=== PATIENT | male | born 1955 | race Caucasian/White ===

== ENCOUNTER 2017-01-17 22:03 | Observation (INO) | payer BC ==
[2017-01-17 22:21] LABS: Hematocrit 33 % (42-52); Hemoglobin 10.5 g/dl (14.0-18.0); Mean Corpuscular HGB Conc 32 g/dl (31-36); Mean Corpuscular Hemoglobin 27 pg (27-31); Mean Corpuscular Volume 87 fL (80-94); Mean Platelet Volume 7 um3 (7.4-10.4); Red Blood Count 3.86 10^6/ul (4.0-5.4); Red Cell Distribution Width 18 % (10.5-15); White Blood Count 9.3 10^3/ul (3.5-10.8)
[2017-01-17 22:36] LABS: Albumin 3.6 g/dL (3.2-5.2); BUN/Creatinine Ratio 9.4 (8-20); Calcium 8.3 mg/dL (8.6-10.3); EGFR African American 102.8 (>60); EGFR Non-African American 79.9 (>60); Globulin 2.8 g/dL (2-4); Magnesium 2.1 mg/dL (1.9-2.7); Potassium 3.5 mmol/L (3.5-5.0); Total Bilirubin 0.2 mg/dL (0.2-1.0); Total Protein 6.4 g/dL (6.4-8.9)
--- NOTE | 2017-01-17 23:34 | ED ---
Glo Schuster Rebecca, scribed for Harjinder Ryan MD on 01/17/17 at 2253 . Neurological HPI - HPI Summary HPI Summary: Pt is a 61 y/o M accompanied by his TORIBIO who presents to ED with intermittent unresponsiveness and upper extremity seizing since approximately 2100 tonight. Per EMS, he has been in and out of responsiveness while en route to [facility] ED and was at one point conscious enough to communicate with them. BG 137 while transporting. EMS report he experienced a small seizure last night. PMHx seizures. reports a similar episode during which he was recently admitted to [facility] as a transfer from [place] due to an episode of "stopped breathing and seizure." He was in [facility] at the end of October and was discharged on November 23, during which he was tested for epilepsy 2x and had a cardiac workup. The reports that he was given a Dx of pseudo seizures. All Hx obtained from EMS and the pts . - History of Current Complaint Chief Complaint: EDSeizure Stated Complaint: SEIZURE Hx Obtained From: Family/Retail Sales Specialist - , EMS Onset/Duration: Still Present Timing: Intermittent Episodes Lasting: Pain Intensity: 0 Pain Scale Used: 0-10 Numeric Character: Responsiveness - Unresponsive Aggravating: Nothing Alleviating: Nothing Associated Signs and Symptoms: Positive: Seizure - Upper extremity seizing activity Similar Episode/Dx as: Prior similar episode at the end of October - admitted to [facility] Related Hx: Seizure - Allergy/Home Medications Allergies/Adverse Reactions: Allergies Allergy/AdvReac Type Severity Reaction Status Date / Time Penicillins Allergy Rash Verified 01/17/17 22:22 Sulfa Antibiotics Allergy Rash Verified 01/17/17 22:22 PMH/Surg Hx/FS Hx/Imm Hx Endocrine/Hematology History: Reports: Hx Thyroid Disease Respiratory History: Reports: Hx Chronic Obstructive Pulmonary Disease (COPD) Musculoskeletal History: Reports: Hx Back Problems, Other Musculoskeletal History - NECK SURGERY 08/25/16 Neurological History: Reports: Hx Seizures - Seizure activity - possible pseudo seizures, Other Neuro Impairments/Disorders - PAIN CLINIC PATIENT - Surgical History Surgery Procedure, Year, and Place: DOG BITE REPAIR. APPENDECTOMY. CARDIAC CATH 02/07. NECK SURGERY 08/25/16 - Immunization History Date of Tetanus Vaccine: unk Date of Influenza Vaccine: unk Infectious Disease History: No Infectious Disease History: Reports: Hx Human Immunodeficiency Virus (HIV), Hx Shingles - EAR, History Other Infectious Disease - HIV Denies: Traveled Outside the [place] in Last 30 Days - Family History Known Family History: Positive: Hypertension - Social History Alcohol Use: Occasionally Substance Use Type: Reports: None Substance Use Comment - Amount & Last Used: OCC MARIJUANA, LYRICA Smoking Status (MU): Current Some Day Smoker Amount Used/How Often: LESS THAN 1 PACK/DAY Have You Smoked in the Last Year: Yes Review of Systems Positive: Other - Intermittent unresponsiveness Neurological: Other - Upper extremity seizing All Other Systems Reviewed And Are Negative: Yes Physical Exam Vital Signs On Initial Exam: Initial Vitals BP 119/67 01/17/17 22:10 Diagnostics - Vital Signs Vital Signs Temp Pulse Resp BP Pulse Ox 01/17/17 22:30 76 15 104/70 100 01/17/17 22:18 99.0 F 82 16 119/67 100 01/17/17 22:10 119/67 - Laboratory Lab Results: Lab Results 01/17/17 01/17/17 01/17/17 Range/Units 22:10 22:10 22:10 WBC 9.3 (3.5-10.8) 10^3/ul RBC 3.86 L (4.0-5.4) 10^6/ul Hgb 10.5 L (14.0-18.0) g/dl Hct 33 L (42-52) % MCV 87 (80-94) fL MCH 27 (27-31) pg MCHC 32 (31-36) g/dl RDW 18 H (10.5-15) % Plt Count 383 (150-450) 10^3/ul MPV 7 L (7.4-10.4) um3 Neut % (Auto) 53.6 (38-83) % Lymph % (Auto) 35.8 (25-47) % [place] % (Auto) 8.4 (1-9) % Eos % (Auto) 1.3 (0-6) % Baso % (Auto) 0.9 (0-2) % Absolute Neuts (auto) 5.0 (1.5-7.7) 10^3/ul Absolute Lymphs (auto) 3.3 (1.0-4.8) 10^3/ul Absolute Monos (auto) 0.8 (0-0.8) 10^3/ul Absolute Eos (auto) 0.1 (0-0.6) 10^3/ul Absolute Basos (auto) 0.1 (0-0.2) 10^3/ul Absolute Nucleated RBC 0 10^3/ul Nucleated RBC % 0 INR (Anticoag Therapy) 0.78 L (0.89-1.11) Sodium 139 (133-145) mmol/L Potassium 3.5 (3.5-5.0) mmol/L Chloride 104 (101-111) mmol/L Carbon Dioxide 26 (22-32) mmol/L Anion Gap 9 (2-11) mmol/L BUN 9 (6-24) mg/dL Creatinine 0.96 (0.67-1.17) mg/dL Est GFR ( Amer) 102.8 (>60) Est GFR (Non-Af Amer) 79.9 (>60) BUN/Creatinine Ratio 9.4 (8-20) Glucose 75 (70-100) mg/dL Lactic Acid (0.5-2.0) mmol/L Calcium 8.3 L (8.6-10.3) mg/dL Magnesium 2.1 (1.9-2.7) mg/dL Total Bilirubin 0.20 (0.2-1.0) mg/dL AST 29 (13-39) U/L ALT 14 (7-52) U/L Alkaline Phosphatase 133 H (34-104) U/L Total Creatine Kinase 118 (10-223) U/L Troponin I 0.00 (<0.04) ng/mL Total Protein 6.4 (6.4-8.9) g/dL Albumin 3.6 (3.2-5.2) g/dL Globulin 2.8 (2-4) g/dL Albumin/Globulin Ratio 1.3 (1-3) // Range/Units 22:10 WBC (3.5-10.8) 10^3/ul RBC (4.0-5.4) 10^6/ul Hgb (14.0-18.0) g/dl Hct (42-52) % MCV (80-94) fL MCH (27-31) pg MCHC (31-36) g/dl RDW (10.5-15) % Plt Count (150-450) 10^3/ul MPV (7.4-10.4) um3 Neut % (Auto) (38-83) % Lymph % (Auto) (25-47) % [place] % (Auto) (1-9) % Eos % (Auto) (0-6) % Baso % (Auto) (0-2) % Absolute Neuts (auto) (1.5-7.7) 10^3/ul Absolute Lymphs (auto) (1.0-4.8) 10^3/ul Absolute Monos (auto) (0-0.8) 10^3/ul Absolute Eos (auto) (0-0.6) 10^3/ul Absolute Basos (auto) (0-0.2) 10^3/ul Absolute Nucleated RBC 10^3/ul Nucleated RBC % INR (Anticoag Therapy) (0.89-1.11) Sodium (133-145) mmol/L Potassium (3.5-5.0) mmol/L Chloride (101-111) mmol/L Carbon Dioxide (22-32) mmol/L Anion Gap (2-11) mmol/L BUN (6-24) mg/dL Creatinine (0.67-1.17) mg/dL Est GFR ( Amer) (>60) Est GFR (Non-Af Amer) (>60) BUN/Creatinine Ratio (8-20) Glucose (70-100) mg/dL Lactic Acid 4.3 H* (0.5-2.0) mmol/L Calcium (8.6-10.3) mg/dL Magnesium (1.9-2.7) mg/dL Total Bilirubin (0.2-1.0) mg/dL AST (13-39) U/L ALT (7-52) U/L Alkaline Phosphatase (34-104) U/L Total Creatine Kinase (10-223) U/L Troponin I (<0.04) ng/mL Total Protein (6.4-8.9) g/dL Albumin (3.2-5.2) g/dL Globulin (2-4) g/dL Albumin/Globulin Ratio (1-3) Result Diagrams: 01/17/17 22:10 01/17/17 22:10 Lab Statement: Any lab studies that have been ordered have been reviewed, and results considered in the medical decision making process. - CT Brain CT CT Interpretation: No Acute Changes - 1. No acute intracranial process. ED physician reviewed this radiology report and agrees. CT Interpretation Completed By: Radiologist - EKG 2218 Cardiac Rate: NL - 84 bpm EKG Rhythm: Sinus Rhythm EKG Interpretation: Normal Course/Dx - Course Assessment/Plan: Pt is a 61 y/o M accompanied by his TORIBIO who presents to ED with intermittent unresponsiveness and upper extremity seizing since approximately 2100 tonight. Per EMS, he has been in and out of responsiveness while en route to [facility] ED and was at one point conscious enough to communicate with them. BG 137 while transporting. EMS report he experienced a small seizure last night. PMHx seizures. reports a similar episode during which he was recently admitted to [facility] as a transfer from [place] due to an episode of "stopped breathing and seizure." He was in [facility] at the end of October and was discharged on November 23, during which he was tested for epilepsy 2x and had a cardiac workup. The reports that he was given a Dx of pseudo seizures. All Hx obtained from EMS and the pts . [facility] was contacted to receive records from his admission. Lactic acid of 4.3, prolactin of 34.8. EKG and CT Brain reveal no acute findings. Discussed care of pt with Dr. Florian who advised Keppra and admission. Discussed care of pt with Dr. Thomas who accepts pt for admission. In the ED course, pt was administred Keppra. He will be admitted with Dx of status epilepticus - Diagnoses Provider Diagnoses: Status epilepticus - Physician Notifications Discussed Care Of Patient With: Jose Florian Time Discussed With Above Provider: 00:07 Instructed by Provider To: Other - Advised administration of Keppra and admission. Discussed care of pt with Dr. aJrrod Thomas at 0018 who accepts pt for admission. Discharge - Discharge Plan Condition: Good Disposition: ADMITTED TO [facility] The documentation as recorded by the Glo moreira Rebecca accurately reflects the service I personally performed and the decisions made by me, Harjinder Ryan MD.
[2017-01-17 23:41] LABS: Prolactin 34.8 ng/mL (1.0-20.0)
[2017-01-18 00:47] LABS: Urine Bilirubin Negative (Negative); Urine Glucose Negative (Negative); Urine Nitrite Negative (Negative)
[2017-01-18] MEDS ORDERED: LORazepam INJ* 2 MG/ML 1 ML VIAL IV PRN (00:48)
[2017-01-18] MEDS ORDERED: Ondansetron INJ* 2 MG/ML VIAL IV PRN (00:51)
[2017-01-18] MEDS ORDERED: Albuterol 2.5 MG/3 ML NEB.SOL* (0.083%) INH PRN (00:51)
[2017-01-18] MEDS ORDERED: NS 0.9% 1000 ML* 1,000 ML IV SCH (01:00)
--- NOTE | 2017-01-18 02:11 | HP ---
H&P (Free Text) History and Physical: PCP: Dr Nieto Date/Time of Evaluation: 01/17/2017 2225 CC: seizures HPI: Mr Hodges is a 61M Hx seizure disorder on levetiracetam who was at a wedding reception interviewer around 2100 when his noticed him 'staring off' and not responding to her voice which is a prodrome to his seizures. She had him stand and they were walking out when she became more concerned and asked for help. He then became unresponsive. Physicians in attendance reported good pulses and recommended EMS be called. Per their report upon arrival he was found to have generalized tonic-clonic activity and was given 5mg midazolam en route which helped temporarily, but he developed further seizure like activity limited to the extremites. They did capture a rhythm strip suspicious for VT vs torsades, but given his seizure active may have been artifact as he has been on telemetry throughout his ED stay with recurrent un- vs hypo-responsive episodes and no associated cardiac arrhythmia. Mr Hodges continues to appear somewhat confused and only stares at me when I ask questions, but will answer his when she repeats them. He is tearful, but otherwise appears in no distress. During my evaluation he develops a thousand yard stare and stops blinking with a leftward gaze. Occulocephalic reflex remained intact and noxious stimuli brings him around somewhat, but not fully. His states he has been doing this for 4 hours since the onset tonight. Additionally, she states he has had increased episodes for the past month including the last 2 days. She reports him taking medications as prescribed. He admits to diffuse mild headache, but denies chest pain, SOB, N/V, F/C, cough, congestion, visual changes, focal W/N/T, or other issues. ED consulted Antonio Florian MD neurology who advised levetiracetam 500mg IV x1 and he will arrange evaluation in the AM. Of note he was admitted in October 2016 to [facility] where a thorough evaluation was performed without illuminating diagnosis. At one point he states that neurology there felt he was having "pseudo-seizures", but that he was informed that neurologist often mis-diagnose that. He reports he was intubated for 3 days during that admission. PMedHx HIV+ seizure disorder hypothyroidism HLD chronic LBP w/ L sciatica GERD BPH alcoholism depression w/ suicidal gestures Ambulatory Orders Nursing to reconcile. Patient/ currently unable to give complete list. Atorvastatin* [Lipitor 80 MG*] 1 tab PO BEDTIME 02/23/16 Efavirenz/Emtricitab/Tenof(NF) [Atripla(NF)] 1 tab PO DAILY 02/23/16 Finasteride TAB* [Proscar TAB*] 1 tab PO DAILY 02/23/16 Levothyroxine TAB* [Synthroid TAB*] 1 tab PO DAILY 02/23/16 Meloxicam(NF) [Mobic(NF)] 1 tab PO DAILY 02/23/16 Omeprazole CAP* [Prilosec CAP* 20 MG] 40 mg PO DAILY 02/23/16 Pregabalin CAP(*) [Lyrica CAP(*)] 75 mg PO BID 02/23/16 QUEtiapine XR TAB* [Seroquel Xr TAB*] 1 tab PO BEDTIME 02/23/16 Umeclidin/Vilant 62.5 MDI(NF) [ANORO 62.5/25 Ellipta DEVICE (NF)] 1 puff INH DAILY 02/23/16 Venlafaxine EXT RELEASE CAP* [Effexor Xr CAP*] 100 mg PO BEDTIME 02/23/16 HYDROcodone/ACETAMIN 5-325 MG* [[place] 5-325 TAB*] 1 tab PO Q6H PRN 09/29/16 Allergies Penicillins Allergy (Verified 01/17/17 22:22) Rash Sulfa Antibiotics Allergy (Verified 01/17/17 22:22) Rash PSurgHx C-spine fusion L-spine fusion B carpal tunnel release appendectomy SocHx: 1PPD cigarettes, occasional alcohol, medical marijuana; lives with his ; works for the [employer]; full code status FamHx: Mother passed of esophageal CA in her 70s. Father passed of an MVA in his 30s. Brother: DM2, chronic LBP, & muscular dystrophy ROS: as above, otherwise reviewed and all were negative Constitutional: NAD, normally developed, well-nourished white male vitals: Vital Signs Temp 37.2 C 01/17/17 22:18 Pulse 87 01/18/17 01:27 Resp 22 01/18/17 01:27 BP 123/78 01/18/17 01:27 Pulse Ox 98 01/18/17 01:27 Intake & Output 01/17/17 01/17/17 01/18/17 11:59 23:59 11:59 Intake Total 105 Balance 105 Weight 68.039 kg Intake: IV Fluids 105 HEENM: atraumatic; sclera/conjunctiva: non-icteric; hearing: clinically intact; oropharynx: clear, mucosa moist Neck: soft tissue: non-tender, no nuchal rigidity; thyroid: normal Pulmonary: clear to auscultation bilaterally, good aeration, no accessory muscle use CV: RR/RR, normal S1S2, no carotid bruit, no jugular venous distention, 2+ B DP/ PT, no edema Abdominal: soft, non-distended, non-tender, no rebound/guarding/rigidity, normoactive bowel sounds, no hepatosplenomegaly or masses, no costovertebral angle tenderness Musculoskeletal: general: stable, no overt deformity or palpable tenderness Integumental: normal appearance and texture of exposed skin Neurological cranial nerves II: unable to assess visual tan III/IV/: summetric light reflex, EOMI/PERRLA V: intact corneal reflex VII: intact facial symmetry VIII: intact hearing IX/X: symmetric palatal motion, no dysarthria XII: midline tongue protrusion, normal voice articulation motor unable to assess 2nd developing hypo-responsive state coordination unable to assess 2nd developing hypo-responsive state sensory unable to assess 2nd developing hypo-responsive state Psychiatric orientation: AA&O to PPS affect: anxious/tearful mood: cooperative eye contact: poor content: limited, unreliable memory: absent regarding event responses: only responds to questions when asked by insight: poor Testing: Lab Results 01/17/17 01/17/17 01/17/17 Range/Units 22:10 22:10 22:10 WBC 9.3 (3.5-10.8) 10^3/ul RBC 3.86 L (4.0-5.4) 10^6/ul Hgb 10.5 L (14.0-18.0) g/dl Hct 33 L (42-52) % MCV 87 (80-94) fL MCH 27 (27-31) pg MCHC 32 (31-36) g/dl RDW 18 H (10.5-15) % Plt Count 383 (150-450) 10^3/ul MPV 7 L (7.4-10.4) um3 Neut % (Auto) 53.6 (38-83) % Lymph % (Auto) 35.8 (25-47) % [place] % (Auto) 8.4 (1-9) % Eos % (Auto) 1.3 (0-6) % Baso % (Auto) 0.9 (0-2) % Absolute Neuts (auto) 5.0 (1.5-7.7) 10^3/ul Absolute Lymphs (auto) 3.3 (1.0-4.8) 10^3/ul Absolute Monos (auto) 0.8 (0-0.8) 10^3/ul Absolute Eos (auto) 0.1 (0-0.6) 10^3/ul Absolute Basos (auto) 0.1 (0-0.2) 10^3/ul Absolute Nucleated RBC 0 10^3/ul Nucleated RBC % 0 INR (Anticoag Therapy) 0.78 L (0.89-1.11) Sodium 139 (133-145) mmol/L Potassium 3.5 (3.5-5.0) mmol/L Chloride 104 (101-111) mmol/L Carbon Dioxide 26 (22-32) mmol/L Anion Gap 9 (2-11) mmol/L BUN 9 (6-24) mg/dL Creatinine 0.96 (0.67-1.17) mg/dL Est GFR ( Amer) 102.8 (>60) Est GFR (Non-Af Amer) 79.9 (>60) BUN/Creatinine Ratio 9.4 (8-20) Glucose 75 (70-100) mg/dL Lactic Acid (0.5-2.0) mmol/L Calcium 8.3 L (8.6-10.3) mg/dL Magnesium 2.1 (1.9-2.7) mg/dL Total Bilirubin 0.20 (0.2-1.0) mg/dL AST 29 (13-39) U/L ALT 14 (7-52) U/L Alkaline Phosphatase 133 H (34-104) U/L Total Creatine Kinase 118 (10-223) U/L Troponin I 0.00 (<0.04) ng/mL Total Protein 6.4 (6.4-8.9) g/dL Albumin 3.6 (3.2-5.2) g/dL Globulin 2.8 (2-4) g/dL Albumin/Globulin Ratio 1.3 (1-3) Prolactin 34.8 H (1.0-20.0) ng/mL Urine Color Urine Appearance Urine pH (5-9) Ur Specific [place] (1.010-1.030) Urine Protein (Negative) Urine Ketones (Negative) Urine Blood (Negative) Urine Nitrate (Negative) Urine Bilirubin (Negative) Urine Urobilinogen (Negative) Ur Leukocyte Esterase (Negative) Urine Glucose (Negative) 01/17/17 01/18/17 Range/Units 22:10 00:30 WBC (3.5-10.8) 10^3/ul RBC (4.0-5.4) 10^6/ul Hgb (14.0-18.0) g/dl Hct (42-52) % MCV (80-94) fL MCH (27-31) pg MCHC (31-36) g/dl RDW (10.5-15) % Plt Count (150-450) 10^3/ul MPV (7.4-10.4) um3 Neut % (Auto) (38-83) % Lymph % (Auto) (25-47) % [place] % (Auto) (1-9) % Eos % (Auto) (0-6) % Baso % (Auto) (0-2) % Absolute Neuts (auto) (1.5-7.7) 10^3/ul Absolute Lymphs (auto) (1.0-4.8) 10^3/ul Absolute Monos (auto) (0-0.8) 10^3/ul Absolute Eos (auto) (0-0.6) 10^3/ul Absolute Basos (auto) (0-0.2) 10^3/ul Absolute Nucleated RBC 10^3/ul Nucleated RBC % INR (Anticoag Therapy) (0.89-1.11) Sodium (133-145) mmol/L Potassium (3.5-5.0) mmol/L Chloride (101-111) mmol/L Carbon Dioxide (22-32) mmol/L Anion Gap (2-11) mmol/L BUN (6-24) mg/dL Creatinine (0.67-1.17) mg/dL Est GFR ( Amer) (>60) Est GFR (Non-Af Amer) (>60) BUN/Creatinine Ratio (8-20) Glucose (70-100) mg/dL Lactic Acid 4.3 H* (0.5-2.0) mmol/L Calcium (8.6-10.3) mg/dL Magnesium (1.9-2.7) mg/dL Total Bilirubin (0.2-1.0) mg/dL AST (13-39) U/L ALT (7-52) U/L Alkaline Phosphatase (34-104) U/L Total Creatine Kinase (10-223) U/L Troponin I (<0.04) ng/mL Total Protein (6.4-8.9) g/dL Albumin (3.2-5.2) g/dL Globulin (2-4) g/dL Albumin/Globulin Ratio (1-3) Prolactin (1.0-20.0) ng/mL Urine Color Straw Urine Appearance Clear Urine pH 6.0 (5-9) Ur Specific [place] 1.006 L (1.010-1.030) Urine Protein Negative (Negative) Urine Ketones Negative (Negative) Urine Blood Negative (Negative) Urine Nitrate Negative (Negative) Urine Bilirubin Negative (Negative) Urine Urobilinogen Negative (Negative) Ur Leukocyte Esterase Negative (Negative) Urine Glucose Negative (Negative) ECG, personally reviewed: NSR rate 84, no ischemia CT brain WO, personally reviewed: IMPRESSION: No acute intracranial process. MRI brain W/WO, [facility] (11/19/2016): negative CTA head/neck, [facility] (11/19/2016): negative CTA chest/abd/pel, [facility] (11/20/2016): esophagitis vs mediastinitis, new very small LLL nodule, R upper & lower air space disease ? aspiration Per [facility] records he had a negative cardiac cath 01/2016 and a prior ECHO showing only moderate aortic insufficiency. Additionally, an LP was performed to evaluate for opportunistic infection related to his HIV+ status with negative results. Impression: 61M presenting with what appears to be a mix of real (given is elevated lactic acid and prolactin levels) and pseudo-seizures and may be in status DIAGNOSIS & PLAN Primary status epilepticus : ICU monitoring : telemetry : supplemental oxygen : seizure precautions : continue home levetiracetam dosing once reconciled : Antonio Florian MD neurology consulted by Mary Ryan MD ED; will eval in the AM : given 1g levetiracetam IV in ED : EEG in AM : levetiracetam level drawn & sent prior to ED bolus : supportive care Secondary HIV+ : review & continue anti-virals once reconciled hypothyroidism : continue levothyroxine dosing once reconciled HLD : continue atorvastatin once reconciled chronic LBP w/ L sciatica : pain control GERD : omeprazole BPH : review meds once reconciled depression w/ suicidal gestures : review meds once reconciled Admission Rational: inpatient for patient at risk of rapid decompensation requiring ICU monitoring; inappropriate for outpatient setting DVTp: SCDs Code Status: full HCP:
[2017-01-18] MEDS ORDERED: Acetaminophen SUPP* 650 MG SUPP PR PRN (02:16)
[2017-01-18 06:26] LABS: Hematocrit 28 % (42-52); Hemoglobin 9.2 g/dl (14.0-18.0); Mean Corpuscular HGB Conc 33 g/dl (31-36); Mean Corpuscular Hemoglobin 28 pg (27-31); Mean Corpuscular Volume 86 fL (80-94); Mean Platelet Volume 7 um3 (7.4-10.4); Red Blood Count 3.26 10^6/ul (4.0-5.4); Red Cell Distribution Width 18 % (10.5-15); White Blood Count 6.9 10^3/ul (3.5-10.8)
--- NOTE | 2017-01-18 07:38 | RAD ---
HISTORY: Seizure COMPARISONS: None TECHNIQUE: Multiple contiguous axial CT scans were obtained of the head without intravenous contrast. FINDINGS: HEMORRHAGE/INFARCT: There is no hemorrhage or acute infarct. MASSES/SHIFT: There is no mass or shift. EXTRA-AXIAL SPACES: There are no extra-axial fluid collections. SULCI AND VENTRICLES: The sulci and ventricles are normal in size and position for the patient's stated age. CEREBRUM: There are no focal parenchymal abnormalities. BRAINSTEM: There are no focal parenchymal abnormalities. CEREBELLUM: There are no focal parenchymal abnormalities. VESSELS: The vessels are grossly normal. PARANASAL SINUSES: The paranasal sinuses are clear. ORBITS: The orbits are unremarkable. BONES AND SOFT TISSUE: No bone or soft tissue abnormalities are noted. OTHER: None IMPRESSION: NO ACUTE INTRACRANIAL PATHOLOGY.
[2017-01-18] MEDS ORDERED: Acetaminophen TAB* 325 MG PO PRN (08:46)
--- NOTE | 2017-01-18 08:48 | PN ---
Subjective Date of Service: 01/18/17 Interval History: HOSPITALIST PROGRESS NOTE Patient seen and examined at bedside. Objective Active Medications: Acetaminophen (Tylenol Supp*) 650 mg MS Q6H PRN PRN Reason: FEVER/PAIN Acetaminophen (Tylenol Tab*) 650 mg PO Q6H PRN PRN Reason: pain/fever Albuterol (Ventolin 2.5 Mg/3 Ml Neb.Jerilyn*) 2.5 mg INH Q2H PRN PRN Reason: SOB/WHEEZING Sodium Chloride (Ns 0.9% 1000 Ml*) 1,000 mls @ 100 mls/hr IV PER RATE DENNIS Last Admin: 01/18/17 01:35 Dose: 100 mls/hr Lorazepam (Ativan Inj*) 2 mg IV ONCE PRN PRN Reason: SEIZURES Ondansetron HCl (Zofran Inj*) 4 mg IV Q6H PRN PRN Reason: NAUSEA Vital Signs 01/18/17 01/18/17 01/18/17 01:00 01:26 01:27 Temperature Pulse Rate 80 86 87 Respiratory 15 17 22 Rate Blood Pressure 117/74 130/75 123/78 (mmHg) O2 Sat by Pulse 100 100 98 Oximetry 01/18/17 01/18/17 01/18/17 01:30 01:40 01:43 Temperature Pulse Rate 72 73 Respiratory 15 13 Rate Blood Pressure 127/77 (mmHg) O2 Sat by Pulse 100 97 Oximetry 01/18/17 01/18/17 01/18/17 01:52 01:56 02:00 Temperature 99.7 F Pulse Rate 75 78 76 Respiratory 13 17 17 Rate Blood Pressure 133/79 120/70 118/75 (mmHg) O2 Sat by Pulse 94 93 92 Oximetry 01/18/17 01/18/17 01/18/17 02:15 02:30 02:45 Temperature Pulse Rate 78 74 80 Respiratory 15 16 21 Rate Blood Pressure 120/70 113/66 158/83 (mmHg) O2 Sat by Pulse 94 95 96 Oximetry 01/18/17 01/18/17 01/18/17 03:00 03:15 03:30 Temperature Pulse Rate 79 78 Respiratory 13 21 22 Rate Blood Pressure 138/82 128/79 109/63 (mmHg) O2 Sat by Pulse 70 97 Oximetry 01/18/17 01/18/17 01/18/17 03:45 04:00 04:15 Temperature Pulse Rate 75 87 76 Respiratory 17 32 16 Rate Blood Pressure 122/72 127/84 111/66 (mmHg) O2 Sat by Pulse 99 97 91 Oximetry 01/18/17 01/18/17 01/18/17 04:31 04:45 05:00 Temperature Pulse Rate 81 74 71 Respiratory 23 16 16 Rate Blood Pressure 116/74 118/70 113/71 (mmHg) O2 Sat by Pulse 93 98 99 Oximetry 01/18/17 01/18/17 01/18/17 05:01 05:15 05:30 Temperature Pulse Rate 77 71 70 Respiratory 17 18 19 Rate Blood Pressure 120/74 126/76 (mmHg) O2 Sat by Pulse 98 98 99 Oximetry 01/18/17 01/18/17 01/18/17 05:45 06:00 06:15 Temperature Pulse Rate 74 67 73 Respiratory 19 19 19 Rate Blood Pressure 128/77 118/71 130/71 (mmHg) O2 Sat by Pulse 96 96 91 Oximetry 01/18/17 01/18/17 01/18/17 06:30 06:45 06:54 Temperature Pulse Rate 76 76 67 Respiratory 26 20 17 Rate Blood Pressure 120/70 119/69 119/69 (mmHg) O2 Sat by Pulse 89 90 98 Oximetry 01/18/17 01/18/17 01/18/17 07:00 07:15 07:31 Temperature Pulse Rate 70 70 77 Respiratory 24 19 25 Rate Blood Pressure 122/71 127/74 144/75 (mmHg) O2 Sat by Pulse 99 97 95 Oximetry 01/18/17 01/18/17 08:00 08:01 Temperature Pulse Rate 74 74 Respiratory 20 19 Rate Blood Pressure 125/76 (mmHg) O2 Sat by Pulse 92 91 Oximetry Result Diagrams: 01/18/17 06:15 01/17/17 22:10 Additional Lab and Data: Lab Results 01/17/17 01/17/17 01/17/17 Range/Units 22:10 22:10 22:10 WBC 9.3 (3.5-10.8) 10^3/ul RBC 3.86 L (4.0-5.4) 10^6/ul Hgb 10.5 L (14.0-18.0) g/dl Hct 33 L (42-52) % MCV 87 (80-94) fL MCH 27 (27-31) pg MCHC 32 (31-36) g/dl RDW 18 H (10.5-15) % Plt Count 383 (150-450) 10^3/ul MPV 7 L (7.4-10.4) um3 Neut % (Auto) 53.6 (38-83) % Lymph % (Auto) 35.8 (25-47) % [place] % (Auto) 8.4 (1-9) % Eos % (Auto) 1.3 (0-6) % Baso % (Auto) 0.9 (0-2) % Absolute Neuts (auto) 5.0 (1.5-7.7) 10^3/ul Absolute Lymphs (auto) 3.3 (1.0-4.8) 10^3/ul Absolute Monos (auto) 0.8 (0-0.8) 10^3/ul Absolute Eos (auto) 0.1 (0-0.6) 10^3/ul Absolute Basos (auto) 0.1 (0-0.2) 10^3/ul Absolute Nucleated RBC 0 10^3/ul Nucleated RBC % 0 INR (Anticoag Therapy) 0.78 L (0.89-1.11) Sodium 139 (133-145) mmol/L Potassium 3.5 (3.5-5.0) mmol/L Chloride 104 (101-111) mmol/L Carbon Dioxide 26 (22-32) mmol/L Anion Gap 9 (2-11) mmol/L BUN 9 (6-24) mg/dL Creatinine 0.96 (0.67-1.17) mg/dL Est GFR ( Amer) 102.8 (>60) Est GFR (Non-Af Amer) 79.9 (>60) BUN/Creatinine Ratio 9.4 (8-20) Glucose 75 (70-100) mg/dL Lactic Acid (0.5-2.0) mmol/L Calcium 8.3 L (8.6-10.3) mg/dL Magnesium 2.1 (1.9-2.7) mg/dL Total Bilirubin 0.20 (0.2-1.0) mg/dL AST 29 (13-39) U/L ALT 14 (7-52) U/L Alkaline Phosphatase 133 H (34-104) U/L Total Creatine Kinase 118 (10-223) U/L Troponin I 0.00 (<0.04) ng/mL Total Protein 6.4 (6.4-8.9) g/dL Albumin 3.6 (3.2-5.2) g/dL Globulin 2.8 (2-4) g/dL Albumin/Globulin Ratio 1.3 (1-3) // Range/Units 22:10 WBC (3.5-10.8) 10^3/ul RBC (4.0-5.4) 10^6/ul Hgb (14.0-18.0) g/dl Hct (42-52) % MCV (80-94) fL MCH (27-31) pg MCHC (31-36) g/dl RDW (10.5-15) % Plt Count (150-450) 10^3/ul MPV (7.4-10.4) um3 Neut % (Auto) (38-83) % Lymph % (Auto) (25-47) % [place] % (Auto) (1-9) % Eos % (Auto) (0-6) % Baso % (Auto) (0-2) % Absolute Neuts (auto) (1.5-7.7) 10^3/ul Absolute Lymphs (auto) (1.0-4.8) 10^3/ul Absolute Monos (auto) (0-0.8) 10^3/ul Absolute Eos (auto) (0-0.6) 10^3/ul Absolute Basos (auto) (0-0.2) 10^3/ul Absolute Nucleated RBC 10^3/ul Nucleated RBC % INR (Anticoag Therapy) (0.89-1.11) Sodium (133-145) mmol/L Potassium (3.5-5.0) mmol/L Chloride (101-111) mmol/L Carbon Dioxide (22-32) mmol/L Anion Gap (2-11) mmol/L BUN (6-24) mg/dL Creatinine (0.67-1.17) mg/dL Est GFR ( Amer) (>60) Est GFR (Non-Af Amer) (>60) BUN/Creatinine Ratio (8-20) Glucose (70-100) mg/dL Lactic Acid 4.3 H* (0.5-2.0) mmol/L Calcium (8.6-10.3) mg/dL Magnesium (1.9-2.7) mg/dL Total Bilirubin (0.2-1.0) mg/dL AST (13-39) U/L ALT (7-52) U/L Alkaline Phosphatase (34-104) U/L Total Creatine Kinase (10-223) U/L Troponin I (<0.04) ng/mL Total Protein (6.4-8.9) g/dL Albumin (3.2-5.2) g/dL Globulin (2-4) g/dL Albumin/Globulin Ratio (1-3) Microbiology and Other Data: Microbiology 01/18/17 01:52 Nasal Screen MRSA (PCR)([facility]USA) - Final Nasal Mrsa Negative Assess/Plan/Problems-Billing Assessment:
[2017-01-18 16:49] VITALS: BP 137/74
--- NOTE | 2017-01-19 02:24 | CONS ---
CC: Dr. Echeverria * NEUROLOGY CONSULTATION: DATE OF CONSULT: 01/18/17 LOCATION: He is in ICU bed 3. REFERRING PHYSICIAN: Dr. Grant. PRIMARY CARE PROVIDER: Dr. Echeverria, [facility], [facility]. HISTORY OF PRESENT ILLNESS: Paulino Hodges is a 61-year-old right-handed man, who presented to the emergency room yesterday with episodes of staring off and unresponsiveness. He carries a diagnosis of possible seizures versus psychogenic nonepileptic spells and we are able to obtain some records from [facility] where he was transferred after he presented to [facility] with unresponsiveness in late October. He has had episodes of unresponsiveness typically proceeded by a sense of impending loss of consciousness, apparently going back at least many months. He had episodes, was convulsive when he was being evaluated at [facility] and was intubated and transferred to [facility] likely May. Records there indicate negative MRI of the brain and an EEG revealed generalized slowing, but no epileptic discharges. He had a number of other studies working potential cardiac problems and lumbar puncture, which reportedly were negative. He was discharged on Keppra, which he continued 500 mg twice per day up to the present. He was at a wedding weekend receptionist yesterday and started to stare off and not respond. There were physicians in attendance according to Dr. Thomas's admission note and he had normal pulses and normal blood pressure when EMS arrived. He was given midazolam in the field because of apparently some shaking or other abnormal movements. In the emergency room, he would stare and was teary eyed, but would not respond to voice otherwise. There was some blinking and leftward gaze observed by Dr. Thomas. I was called by the emergency room physician recommending Keppra 500 mg IV and at the time we did not know his medical history. PAST MEDICAL HISTORY: HIV positivity for decades, under good control, on HAART therapy. He says he is very reliable taking his medications. He has chronic neck and back pain and has had fusions done within the last year. He has a history of emphysema, anxiety, depression, and hypothyroidism. MEDICATIONS: At home consist of: 1. Lyrica 150 mg p.o. b.i.d. 2. Percocet 7.5/325 one every 4 hours as needed. 3. He was on diazepam up until about 2 weeks ago, which he tapered off 5 mg p.o. t.i.d. 4. Keppra 500 mg p.o. b.i.d., which he says he takes regularly. 5. Venlafaxine ER 150 mg p.o. q. day. 6. Several inhalers. 7. Quetiapine 50 mg p.o. q.h.s. 8. Omeprazole 40 mg p.o. q. day 9. Levothyroxine 1 tablet p.o. q. day 10. Atripla 1 p.o. q. day 11. Atorvastatin 80 mg p.o. q. day. ALLERGIES: He is allergic to PENICILLIN and SULFA drugs. REVIEW OF SYSTEMS: Notable for chronic back pain radiating into both legs. He has chronic neck pain as well. He states he has never had central nervous system infection and his HIV has been under good control on antiretroviral therapy. According to the computer records, he smokes marijuana and drinks a couple of beers a day. There is no history of meningitis, encephalitis, or head trauma. There is no prior history of epilepsy other than episodes in the last year or more. PHYSICAL EXAM: He is a thin, but currently well hydrated. Temperature 99.6 temporally, blood pressure running about 120/70 to 80, heart rate in the 60s and regular, respirations 19, oxygen saturation 96% on room air. Oral mucosa is moist and there is no oral trauma. There is no head trauma. Lungs are clear bilaterally. Heart is in a regular rate and rhythm without murmurs. There are no cervical bruits. Neurologically, pupils react equally from about 4.5 to 2.5 mm. There is no ptosis. Eye movements are normal and visual tan are full to confrontation. Funduscopic exam is normal bilaterally. Facial musculature is symmetric. Facial sensation to light touch is symmetric. Hearing is intact. Speech is clear without dysarthria. Motor exam reveals pretty good strength proximally and distally in upper and lower extremities. There is no pronator drift. There is no rest or sustention tremor. Finger taps are normal in the hands. Sensation in the limbs is intact to light touch. Reflexes are hypoactive, but present in the upper extremities, trace at the knees, trace at the ankles. Plantars are flexor bilaterally. I did not attempt to ambulate him. He is alert and oriented to person, place, and time. He is a good historian with intact memory and fluent language. He has good attention, concentration, and fund of knowledge. DIAGNOSTIC STUDIES/LAB DATA: Notable for elevated lactic acid when he came in yesterday at 2200 hours at 4.3, which had dropped to normal at 1.9 by 0130. Single prolactin level was elevated at 34.8 yesterday when he presented, but has not been repeated. Rest of his chemistry profile is unremarkable. CBC notable for hemoglobin of 9.2 at presentation, white blood cell count normal at 6.9. Urinalysis is unremarkable. CT of the brain was reviewed and looks normal and was interpreted by Radiology as such. IMPRESSION AND PLAN: Impression is that of possible seizures versus psychogenic nonepileptic spells. He is probably going to need epilepsy monitoring, but he has a neurologist with followup in [place] and so we will leave that to his outpatient neurologist. Recommended increasing Keppra to 750 mg twice per day and continue his other medications as before. There is no evidence of acute medical process or infection at this point in time, so I think he can be discharged. [id number]/[facility] #: [id number] [facility]
--- NOTE | 2017-01-19 05:54 | DS ---
CC: Dr. Wild Echeverria, Infectious Disease specialist in [place], phone number [phone] * DISCHARGE SUMMARY: DATE OF ADMISSION: 01/18/17 DATE OF DISCHARGE: 01/18/17 PRIMARY CARE PROVIDER: Dr. Wild Echeverria. DISCHARGE DIAGNOSES: 1. Possible seizure. 2. Lactic acidosis. SECONDARY DIAGNOSES: 1. HIV positive, on HAART. 2. Possible history of seizure disorder versus pseudoseizure. 3. Hypothyroidism. 4. Hyperlipidemia. 5. Chronic low back pain. 6. Gastroesophageal reflux disease. 7. BPH. 8. Alcoholism. 9. Depression with history of suicidal ideation. MEDICATIONS: Medication list at the time of transfer was obtained from his pharmacy and from records from [facility]. The patient does not remember all the medications he takes at home. 1. Atorvastatin 80 mg p.o. at bedtime. 2. Diazepam 5 mg p.o. t.i.d. 3. Atripla 1 tablet p.o. at bedtime. 4. Finasteride 5 mg p.o. daily. 5. Levothyroxine 50 mcg p.o. daily. 6. Meclizine 12.5 mg p.o. t.i.d. as needed for dizziness. 7. Meloxicam 15 mg p.o. daily. 8. Omeprazole 40 mg p.o. daily. 9. Oxycodone with acetaminophen 7.5/325 mg 1 tablet p.o. q.4 hours MDD 6 tablets. 10. Lyrica 75 mg p.o. b.i.d. 11. Seroquel 50 mg p.o. at bedtime. 12. Symbicort 160/4.5 two puffs inhaled b.i.d. 13. Tadalafil 5 mg p.o. daily. 14. Anoro Ellipta 62.5/25 one puff inhaled daily. 15. Venlafaxine ER 150 mg p.o. daily. HOSPITAL COURSE: Mr. Hodges is a 61-year-old male with a past medical history stated above who presented to our emergency room after a possible episode of seizure last night during a wedding. His history goes back to end of October when he was getting ready to have a lumbar spine surgery at the end of November. He went to [facility] for preop testing and on his way home he felt weak, appeared pale, and as per his he lost consciousness. The took him to the [place] [facility] where he had another episode of loss of consciousness while sitting down in the car. He was evaluated, a CT of the head was unremarkable. However, the patient sustained another episode of unresponsiveness. He became hypoxic. He was then intubated for airway protection and transferred to [facility]. As per [facility] records, the reported the patient has syncopal episodes every 2 to 3 months. He was admitted to the Medical Intensive Care Unit. CTA of head and neck was negative for significant stenosis. Cardiology was consulted for syncope and felt that giving his history of multiple syncopal episodes in the past this was likely vasovagal etiology and he was likely dehydrated due to his preop testing causing a vasovagal mechanism. The patient was also evaluated for a possible seizure, seen by Neurology, loaded with levetiracetam. As per report MRI of the brain and LP were negative. An EEG showed only generalized slowing. The patient was extubated and the recommendation was to continue Keppra 500 mg twice a day and to follow up with Neurology in 3 months. Also other incidental finding during the admission was some esophageal abnormalities that will be worked up as outpatient. The patient states that he went to a wedding yesterday and as per HPI, his noticed him "staring off" and not responding to her voice which she reports as a prodrome to his seizures. She was trying to leave the alliance party with him, but then he became unresponsive. There were physicians present in the alliance party and they recommended EMS be called. By the time EMS arrived, the patient was found to have a generalized tonic-colonic activity and received 5 mg Midazolam that helped temporarily, but it sounds like he had further seizure like activity mainly to his extremities. There was also some suspicion for VT versus torsades , but this occurred during his seizure activity so it was felt this could be artifact and while monitored on telemetry he had no further episodes of any arrhythmias. For more details about his presentation I refer you to his history and physical. In our emergency room, the patient had a CT of the brain without contrast that showed no acute intracranial pathology. His laboratory tests showed an elevated lactic acid of 4.3 that later on improved to 1.9. His prolactin level was also elevated at 34.8. The patient was seen in consultation by Neurology (Dr. Florian) and his recommendation was to increase his Keppra to 750 mg p.o. b.i.d. and to follow up with his neurologist in [place]. The patient is asymptomatic and anxious for discharge. He states that he has an appointment with Dr. Echeverria tomorrow and he does not want to miss it. He denies any chest pain at this time. Although, the patient's diagnosis is still unclear with his recurrent loss of consciousness be it syncope or seizure he was advised not to drive as he may lose consciousness while driving. Until he has further diagnostic studies for clarification, he should really not drive. As per records from [facility], the patient had the stress test in January 2016 with questionable septal ischemia. He underwent a cardiac cath that showed insignificant CAD with 20% disease in the LAD and 20% disease in the RCA what makes this report a V-tach unlikely. I agree with Dr. Thomas's assessment that this was likely artifact associated with movement during seizure. The patient is medically stable to be discharged at this point and he will follow up with his PCP tomorrow. He was advised to return to the closest emergency room if he has recurrence of any of his symptoms. PHYSICAL EXAMINATION: Vital Signs: Temperature 98.7, heart rate 72, respiratory rate 19, oxygen saturation 96% on room air, blood pressure is 121/ 73. General: The patient is a thin elderly male lying in bed in no acute distress. CVS: Normal S1 and S2. Regular rate and rhythm. No murmur appreciated. Abdomen is soft, nontender, and nondistended. Bowel sounds are present. Extremities: No edema. Neuro: He is alert, awake, and oriented x3. Cranial nerves II through XII are grossly intact. He is able to move all 4 extremities. DIET: Regular diet. ACTIVITY: As tolerated. He should avoid driving and other activities that could be life threatening if he has a seizure like swimming by himself or bathing by himself. DISPOSITION: To home. STATUS WHILE IN THE HOSPITAL: Observation. Please keep in mind this is a summarized version of this patient's hospital stay. If you need more information please feel free to call me at [phone] or please obtain the full medical records. TIME SPENT: Approximately 45 minutes was spent to complete this discharged. [id number]/[facility] #: [id number] [facility]
== END 2017-01-18 18:54 | disposition home or self-care (01) ==
LOC: ED 22:03 → ICU 01-18 00:47 → INTOOBSV 01-18 00:47 → OBSVTOIN 01-18 00:47
PROVIDERS: ADMIT Hospitalist; ATTEND Internal Medicine
DX: R56.9 Unspecified convulsions (principal); E87.2 Acidosis; Z21 Asymptomatic human immunodeficiency virus [HIV] infection status; E03.9 Hypothyroidism, unspecified; E78.5 Hyperlipidemia, unspecified; K21.9 Gastro-esophageal reflux disease without esophagitis; N40.0 Benign prostatic hyperplasia without lower urinary tract symptoms; F10.20 Alcohol dependence, uncomplicated; F34.1 Dysthymic disorder; J44.9 Chronic obstructive pulmonary disease, unspecified
CPT/HCPCS: 36415; 70450; 80053; 80177; 81003; 82550; 83605; 83735; 84146; 84484; 85025; 85027; 85610; 87641; 93005; 96374; 96375; 99284; A9270-GY; G0378

== ENCOUNTER 2017-10-14 18:11 | Observation (INO) | payer BC ==
[2017-10-14] MEDS ORDERED: NS 0.9% 1000 ML* 1,000 ML IV ONE (18:13)
[2017-10-14 18:29] LABS: ABS Basophils 0.1 10^3/ul (0-0.2); ABS Eosinophils 0.1 10^3/ul (0-0.6); ABS Monocytes 0.8 10^3/ul (0-0.8); ABS Neutrophils 6.6 10^3/ul (1.5-7.7); ABS Nucleated RBC 0 10^3/ul; Eosinophil % 1.1 % (0-6); Hematocrit 41 % (42-52); Hemoglobin 13.7 g/dl (14.0-18.0); Lymphocyte % 34.2 % (25-47); Mean Corpuscular HGB Conc 33 g/dl (31-36); Mean Corpuscular Hemoglobin 29 pg (27-31); Mean Corpuscular Volume 87 fL (80-94); Mean Platelet Volume 6.7 um3 (7.4-10.4); Nucleated Red Blood Cells % 0; Platelet Count 312 10^3/ul (150-450); Red Blood Count 4.78 10^6/ul (4.0-5.4); Red Cell Distribution Width 20 % (10.5-15); White Blood Count 11.6 10^3/ul (3.5-10.8)
[2017-10-14 18:34] LABS: Urine Appearance Clear; Urine Blood 1+ (Negative); Urine Color Yellow; Urine Ketones Negative (Negative); Urine Protein Negative (Negative); Urine Specific Gravity 1.006 (1.010-1.030); Urine Urobilinogen Negative (Negative)
[2017-10-14] MEDS ORDERED: LORazepam INJ* 2 MG/ML 1 ML VIAL IV PUSH ONE (18:36)
[2017-10-14] MEDS ORDERED: LORazepam INJ* 2 MG/ML 1 ML VIAL ONE (18:37)
[2017-10-14 18:38] LABS: INR 0.77 (0.77-1.02)
[2017-10-14] MEDS ORDERED: Midazolam* 1 MG/ML 5 ML VIAL (5 MG) ONE (18:44)
[2017-10-14 18:51] LABS: EGFR Non-African American 78.9 (>60)
[2017-10-14] MEDS ORDERED: Midazolam* 1 MG/ML 5 ML VIAL (5 MG) SLOW PUSH ONE (19:06)
--- NOTE | 2017-10-14 19:39 | RAD ---
Indication: Seizure. Unresponsive. Comparison: January 17, 2017 Technique: Noncontrast CT vertex of skull through foramen magnum. Report: The sulci, ventricles, and basal cisterns are normal for age. [place] matter white matter differentiation is preserved without evidence for edema. No intra or extra axial hemorrhage, mass, or fluid collection detected. Unremarkable visualized orbital contents. Unremarkable calvarium and skull base. Unremarkable scalp. The visualized paranasal sinuses and mastoid air spaces are clear. IMPRESSION: Negative unenhanced head CT for age. Unchanged compared with the January 17, 2017 exam.
--- NOTE | 2017-10-14 19:42 | RAD ---
Indication: Seizure, unresponsive. Post CPR. Comparison: No relevant prior exams available on the [facility] [place]. Technique: Supine AP 1825 hours Report: Clear lungs and pleural spaces. No gross evidence for pneumothorax within limits of supine technique. The heart, pulmonary vasculature, and mediastinal contours are unremarkable. Anterior cervical fusion hardware. No rib fractures evident. IMPRESSION: No evidence for acute intrathoracic disease.
[2017-10-14] MEDS ORDERED: NS 0.9% 1000 ML* 1,000 ML IV SCH (20:45)
[2017-10-14] MEDS ORDERED: Pregabalin CAP(*) 25 MG PO PRN (20:46)
--- NOTE | 2017-10-14 20:52 | ED ---
Alley Schuster Julia, scribed for Kayden Liu MD on 10/14/17 at 1814 . Neurological HPI - HPI Summary HPI Summary: This is a 61 year old M BIBA to [facility] unresponsive from his driveway at home. EMS reports a that a bystander found him on the ground and provided CPR. He remained unresponsive during transport. EMS reports stable vitals during transport. Narcan was not given, as EMS states PERRL. EMS additionally reports smell of alcohol. Active medication record reviewed. Medical records reviewed; previous admission for seizures in December of 2016. History from patient unattainable. Patient is a Level 5 caveat. - History of Current Complaint Stated Complaint: SEIZURES Time Seen by Provider: 10/14/17 18:13 Hx Obtained From: EMS, Medical Records Hx From Patient Unobtainable Due To: Altered Mental Status Onset/Duration: Still Present Timing: Constant Episode Lasting: Unknown Syncope Context: Unknown Seizure Character: Partial (Specify) Aggravating: Alcohol/Drug Ingestion - Additional Pertinent History Primary Care Physician: [id number] - Allergy/Home Medications Allergies/Adverse Reactions: Allergies Allergy/AdvReac Type Severity Reaction Status Date / Time MS Penicillins [Penicillins] Allergy Rash Verified 01/17/17 22:22 MS Sulfa Antibiotics Allergy Rash Verified 01/17/17 22:22 [Sulfa Antibiotics] Home Medications: Home Medications Efavirenz/Emtricitab/Tenof(NF) [Atripla(NF)] 1 tab PO DAILY 10/14/17 [History Confirmed 10/14/17] Finasteride [Proscar] 5 mg PO DAILY 10/14/17 [History Confirmed 10/14/17] Omeprazole CAP* [Prilosec CAP* 20 MG] 40 mg PO DAILY 10/14/17 [History Confirmed 10/14/17] Pregabalin CAP(*) [Lyrica CAP(*)] 75 mg PO BID PRN 10/14/17 [History Confirmed 10/14/17] QUEtiapine TAB* [Seroquel 25 MG TAB*] 50 mg PO BEDTIME 10/14/17 [History Confirmed 10/14/17] Tadalafil (Nf) [Cialis (NF)] 5 mg PO DAILY PRN 10/14/17 [History Confirmed 10/14] Venlafaxine ER (NF) [Effexor ER (NF)] 150 mg PO DAILY 10/14/17 [History Confirmed 10/14/17] PMH/Surg Hx/FS Hx/Imm Hx Endocrine/Hematology History: Reports: Hx Thyroid Disease, Hx Anemia Cardiovascular History: Reports: Hx Hypercholesterolemia, Other Cardiovascular Problems/Disorders - cardiac cath 02/12/2016 Respiratory History: Reports: Hx Chronic Obstructive Pulmonary Disease (COPD) GI History: Reports: Hx Gastroesophageal Reflux Disease History: Reports: Hx Benign Prostatic Hyperplasia Musculoskeletal History: Reports: Hx Arthritis, Hx Back Problems, Other Musculoskeletal History - NECK SURGERY 08/25/16 Sensory History: Denies: Hx Contacts or Glasses, Hx Hearing Aid Opthamlomology History: Denies: Hx Contacts or Glasses Neurological History: Reports: Hx Seizures - Seizure activity - possible pseudo seizures, Other Neuro Impairments/Disorders - PAIN CLINIC PATIENT Psychiatric History: Reports: Hx Anxiety, Hx Depression - Surgical History Surgery Procedure, Year, and Place: DOG BITE REPAIR. APPENDECTOMY. CARDIAC CATH 02/07. NECK SURGERY 08/25/16 - Immunization History Date of Tetanus Vaccine: unk Date of Influenza Vaccine: unk Infectious Disease History: Reports: Hx Human Immunodeficiency Virus (HIV), Hx Shingles - EAR, History Other Infectious Disease - HIV Denies: Hx of Known/Suspected MRSA - Family History Known Family History: Positive: Hypertension - Social History Alcohol Use: None Substance Use Type: Reports: Marijuana Substance Use Comment - Amount & Last Used: 2X per week, 08/22/16 Smoking Status (MU): Current Some Day Smoker Amount Used/How Often: LESS THAN 1 PACK/DAY Have You Smoked in the Last Year: Yes Review of Systems All Other Systems Reviewed And Are Negative: No - Comments Additional Review of Systems Comments: ROS is unattainable. Patient is a Level 5 caveat. Physical Exam - Summary Physical Exam Summary: VITAL SIGNS: Reviewed. GENERAL: Patient is agitated. HEAD AND FACE: No signs of trauma. No ecchymosis, hematomas or skull depressions. EYES: Pupils responsive MOUTH: Oral mucosa dry NECK: Supple, trachea is midline, no adenopathy, no JVD, no carotid bruit. LUNGS: Decreased breath sounds. CVS: S1 and S2 present ABDOMEN: Soft and decreased bowel sounds. EXTREMITIES: No edema noted. NEURO: agitated SKIN: Dry and warm Triage Information Reviewed: Yes Vital Signs On Initial Exam: Initial Vitals Temp Pulse Resp BP Pulse Ox 99.4 F 90 16 176/94 93 10/14/17 18:16 10/14/17 18:16 10/14/17 18:16 10/14/17 18:16 10/14/17 18:16 Vital Signs Reviewed: Yes Diagnostics - Vital Signs Vital Signs Temp Pulse Resp BP Pulse Ox 10/14/17 19:00 123 16 94 10/14/17 18:52 130 160/84 96 10/14/17 18:21 92 24 140/88 96 10/14/17 18:16 99.4 F 90 16 176/94 93 - Laboratory Lab Results: Lab Results 10/14/17 10/14/17 10/14/17 Range/Units 18:19 18:19 18:19 WBC 11.6 H (3.5-10.8) 10^3/ul RBC 4.78 (4.0-5.4) 10^6/ul Hgb 13.7 L (14.0-18.0) g/dl Hct 41 L (42-52) % MCV 87 (80-94) fL MCH 29 (27-31) pg MCHC 33 (31-36) g/dl RDW 20 H (10.5-15) % Plt Count 312 (150-450) 10^3/ul MPV 6.7 L (7.4-10.4) um3 Neut % (Auto) 56.9 (38-83) % Lymph % (Auto) 34.2 (25-47) % Branch % (Auto) 7.1 H (0-7) % Eos % (Auto) 1.1 (0-6) % Baso % (Auto) 0.7 (0-2) % Absolute Neuts (auto) 6.6 (1.5-7.7) 10^3/ul Absolute Lymphs (auto) 4.0 (1.0-4.8) 10^3/ul Absolute Monos (auto) 0.8 (0-0.8) 10^3/ul Absolute Eos (auto) 0.1 (0-0.6) 10^3/ul Absolute Basos (auto) 0.1 (0-0.2) 10^3/ul Absolute Nucleated RBC 0 10^3/ul Nucleated RBC % 0 INR (Anticoag Therapy) 0.77 (0.77-1.02) APTT 26.0 (26.0-36.3) seconds Sodium (139-145) mmol/L Potassium (3.5-5.0) mmol/L Chloride (101-111) mmol/L Carbon Dioxide (22-32) mmol/L Anion Gap (2-11) mmol/L BUN (6-24) mg/dL Creatinine (0.67-1.17) mg/dL Est GFR ( Amer) (>60) Est GFR (Non-Af Amer) (>60) BUN/Creatinine Ratio (8-20) Glucose (70-100) mg/dL POC Glucose (mg/dL) (70-100) mg/dL Lactic Acid (0.5-2.0) mmol/L Calcium (8.6-10.3) mg/dL Magnesium (1.9-2.7) mg/dL Total Bilirubin (0.2-1.0) mg/dL AST (13-39) U/L ALT (7-52) U/L Alkaline Phosphatase (34-104) U/L Total Protein (6.4-8.9) g/dL Albumin (3.2-5.2) g/dL Globulin (2-4) g/dL Albumin/Globulin Ratio (1-3) TSH (0.34-5.60) mcIU/mL Urine Color Yellow Urine Appearance Clear Urine pH 6.0 (5-9) Ur Specific [place] 1.006 L (1.010-1.030) Urine Protein Negative (Negative) Urine Ketones Negative (Negative) Urine Blood 1+ A (Negative) Urine Nitrate Negative (Negative) Urine Bilirubin Negative (Negative) Urine Urobilinogen Negative (Negative) Ur Leukocyte Esterase Negative (Negative) Urine WBC (Auto) Trace(0-5/hpf) (Absent) Urine RBC (Auto) Trace(0-2/hpf) (Absent) Urine Bacteria Absent (Absent) Urine Glucose Negative (Negative) Serum Alcohol (<10) mg/dL 10/14/17 10/14/17 10/14/17 Range/Units 18:19 18:19 18:54 WBC (3.5-10.8) 10^3/ul RBC (4.0-5.4) 10^6/ul Hgb (14.0-18.0) g/dl Hct (42-52) % MCV (80-94) fL MCH (27-31) pg MCHC (31-36) g/dl RDW (10.5-15) % Plt Count (150-450) 10^3/ul MPV (7.4-10.4) um3 Neut % (Auto) (38-83) % Lymph % (Auto) (25-47) % Branch % (Auto) (0-7) % Eos % (Auto) (0-6) % Baso % (Auto) (0-2) % Absolute Neuts (auto) (1.5-7.7) 10^3/ul Absolute Lymphs (auto) (1.0-4.8) 10^3/ul Absolute Monos (auto) (0-0.8) 10^3/ul Absolute Eos (auto) (0-0.6) 10^3/ul Absolute Basos (auto) (0-0.2) 10^3/ul Absolute Nucleated RBC 10^3/ul Nucleated RBC % INR (Anticoag Therapy) (0.77-1.02) APTT (26.0-36.3) seconds Sodium 137 L (139-145) mmol/L Potassium 3.5 (3.5-5.0) mmol/L Chloride 104 (101-111) mmol/L Carbon Dioxide 18 L (22-32) mmol/L Anion Gap 15 H (2-11) mmol/L BUN 11 (6-24) mg/dL Creatinine 0.97 (0.67-1.17) mg/dL Est GFR ( Amer) 101.5 (>60) Est GFR (Non-Af Amer) 78.9 (>60) BUN/Creatinine Ratio 11.3 (8-20) Glucose 94 (70-100) mg/dL POC Glucose (mg/dL) 94 (70-100) mg/dL Lactic Acid 6.9 H* (0.5-2.0) mmol/L Calcium 8.7 (8.6-10.3) mg/dL Magnesium 2.0 (1.9-2.7) mg/dL Total Bilirubin 0.30 (0.2-1.0) mg/dL AST 40 H (13-39) U/L ALT 25 (7-52) U/L Alkaline Phosphatase 106 H (34-104) U/L Total Protein 7.1 (6.4-8.9) g/dL Albumin 4.0 (3.2-5.2) g/dL Globulin 3.1 (2-4) g/dL Albumin/Globulin Ratio 1.3 (1-3) TSH 2.92 (0.34-5.60) mcIU/mL Urine Color Urine Appearance Urine pH (5-9) Ur Specific [place] (1.010-1.030) Urine Protein (Negative) Urine Ketones (Negative) Urine Blood (Negative) Urine Nitrate (Negative) Urine Bilirubin (Negative) Urine Urobilinogen (Negative) Ur Leukocyte Esterase (Negative) Urine WBC (Auto) (Absent) Urine RBC (Auto) (Absent) Urine Bacteria (Absent) Urine Glucose (Negative) Serum Alcohol 240 H (<10) mg/dL Result Diagrams: 10/14/17 18:19 10/14/17 18:19 Lab Statement: Any lab studies that have been ordered have been reviewed, and results considered in the medical decision making process. - Radiology CXR Radiology Interpretation Completed By: Radiologist - No evidence for acute intrathoracic disease. Dr. Liu has reviewed this report. - CT Brain CT CT Interpretation Completed By: Radiologist - Negative unenhanced head CT for age. Unchanged compared with the January 17, [address] Liu has reviewed this report. - EKG 18:17 Cardiac Rate: NL EKG Rhythm: Sinus Rhythm - 90 BPM EKG Interpretation: no ST elevation, normal axis Re-Evaluation - Re-Evaluation 1 Re-Evaluation Time: 18:45 Change: Improved - Patient is altered and very agitated. He is pulling out his IV. Patient was given Ativan without improvement. Patient is given Versed and is more calm. 2 Re-Evaluation Time: 19:10 Comment: Patient is snoring. Course/Dx - Course Assessment/Plan: This patient is a 61-year-old male who presents to the emergency department with a chief complaint of having pseudoseizures with altered mental status. At this point unable to obtain a history since the patient is having an active seizure. We obtained an IV access , he was placed on a lunchroom monitor and the patient was given 2 mg of Ativan. After the patient was given the Ativan the patient is to be having agitation. The patient was given Versed and he was placed in a 4. Restraint. We will reassess every 2 hours the restraints and the need for them. Blood work shows white blood count of 11.6, slight anemia, lactic acid is 6.9 and alcohol level is 240. I also placed the patient in oxygen and at this point the O2 sat is 96% and 2 L of oxygen. The patient is more comfortable therefore that I order a head CT. Head CT impression negative for acute interconnected pathology. Unchanged from compared to January 17, 2017. Chest x-ray impression: No evidence of acute intrathoracic disease. Multiple reexaminations the patient is comfortable. Hemodynamically stable and 2 L of oxygen. I discussed the findings at this results with Dr. Moseley and she accepted the patient for admission. At this time the patient is resting comfortable and maintaining his airway. - Differential Dx Differential Diagnoses Neuro: Positive: Cerebrovascular Accident, Overdose, Seizure Disorder, Transient Ischemic Attack - Diagnoses Provider Diagnoses: Altered mental status, History of pseudoseizure, Alcohol intoxication - Physician Notifications Discussed Care Of Patient With: Rosio Moseley - hospitalist Time Discussed With Above Provider: 20:00 Instructed by Provider To: Admit As Inpatient Discharge - Sign-Out/Discharge Documenting (check all that apply): Discharge/Admit/Transfer - Discharge Plan Condition: Guarded Disposition: ADMITTED TO [facility] Referrals: Wild Echeverria MD, V [Primary Care Provider] - - Billing Disposition and Condition Condition: GUARDED Disposition: H[facility]P-[facility] [place] The documentation as recorded by the Alley moreira Julia accurately reflects the service I personally performed and the decisions made by , Kayden Liu MD.
[2017-10-14] MEDS ORDERED: EMTRICITAB PO SCH (21:00)
[2017-10-14] MEDS ORDERED: LORazepam INJ* 2 MG/ML 1 ML VIAL IV PUSH PRN (21:00)
[2017-10-14] MEDS ORDERED: EFAVIRENZ PO SCH (21:00)
[2017-10-14] MEDS ORDERED: [UNRECOGNIZED DRUG - OTHER] PO SCH (21:00)
[2017-10-14] MEDS ORDERED: Acetaminophen TAB* 325 MG PO PRN (22:30)
[2017-10-14] MEDS ORDERED: Acetaminophen TAB* 325 MG ONE (22:35)
[2017-10-15 00:58] VITALS: BP 138/81
--- NOTE | 2017-10-15 03:42 | HP ---
CC: Dr. Wild Echeverria * HISTORY AND PHYSICAL: DATE OF ADMISSION: 10/14/17 PRIMARY CARE PROVIDER: Dr. Wild Echeverria. CHIEF COMPLAINT: Unresponsive. HISTORY OF PRESENT ILLNESS: Mr. Hodges is a 61-year-old male who has a history of HIV, pseudoseizures, hypothyroidism, hyperlipidemia, chronic back pain, BPH, and GERD as well as depression who presents to the emergency room after being found in his driveway shaking and unresponsive. According to the patient's who unfortunately was not present at the time of the patient going down on the drive way, he had been in his usual state of health over the last couple of days. She states that it is not uncommon for the patient to drink alcohol throughout the day. He states that he does not drink much in terms of water or eat much during the day. She states that he does typically eat dinner in the evening. The patient's states that she was at work and when she arrived home, she found the patient lying in the driveway with EMS present. What she was informed was a passerby saw the patient lying in the driveway and stopped. Reportedly CPR was started. It is unclear for how long he may have received CPR as the patient's does not know. She states that when she saw him lying in the driveway, he looked as if he was having one of his nonepileptic spells. She states that he has these spells when he over exerts himself. She states that he had an episode either this past Thursday or Thursday evening. She tells me that when he has these episodes at home, she has been instructed to keep him comfortable and safe and just ride out the spell. She states that EMS had not been summoned by the passer by and she was home, she would have managed him at home. In the emergency room, the patient was noted to have shaking of his arms and legs, he therefore received Ativan. After receiving the Ativan, the patient reportedly became talkative stating he wanted to go home. He became agitated and was placed in restraints. He then received two doses of Versed. Currently, the patient is sleeping very deeply and unarousable. PAST MEDICAL HISTORY: 1. HIV. 2. Pseudoseizures. 3. Hypothyroidism. 4. Hyperlipidemia. 5. Chronic low back pain. 6. GERD. 7. BPH. 8. Depression. 9. Possible alcoholism. PAST SURGICAL HISTORY: 1. Appendectomy. 2. Bilateral carpal tunnel release. 3. C-spine fusion. 4. L-spine fusion. MEDICATIONS: 1. Anoro 62.5/25 one puff inhaled daily. 2. Levothyroxine 50 mcg p.o. daily. 3. Atripla 1 tab p.o. daily. 4. Lyrica 75 mg p.o. b.i.d. p.r.n. pain. 5. Meloxicam 15 mg p.o. daily. 6. Finasteride 5 mg p.o. daily. 7. Lipitor 80 mg p.o. q.h.s. 8. Seroquel 50 mg p.o. q.h.s. 9. Omeprazole 40 mg p.o. daily. 10. Tadalafil 5 mg p.o. daily p.r.n. ED. 11. Venlafaxine ER 150 mg p.o. daily. ALLERGIES: PENICILLIN and SULFA. FAMILY HISTORY: This is based on a prior history and physical. The patient's mom at the age of 70 of esophageal cancer. in his 30s of an MVA. The patient had a brother, who had a history of diabetes and muscular dystrophy. SOCIAL HISTORY: Per the patient's , he smokes approximately 1 pack per day. He drinks alcohol typically on a daily basis though his does not know how much. He quit his job recently, has been stressed over this. He is , he has no children. His , Gina, is his healthcare proxy. REVIEW OF SYSTEMS: Unobtainable from the patient as he is somnolent post benzodiazepine administration. PHYSICAL EXAMINATION GENERAL: The patient is a well-developed, middle-aged male seen lying in the stretcher, sleeping very soundly with sonorous respirations, in no acute distress. VITAL SIGNS: Blood pressure 120/69, pulse 93, respirations 21, temp 99.4, and O2 sat 94% on 2 L. HEENT: Pupils are almost pinpoint, though they do react to light when I lift the lids. Oropharynx is clear. The tongue appears dry. The patient wears upper dentures. There is no submandibular, cervical, or supraclavicular adenopathy. Thyroid is not enlarged. No thyroid nodules noted. PULMONARY: Lungs are clear to auscultation bilaterally. CARDIAC: Normal S1, S2. Regular rate and rhythm. I do not appreciate any murmurs. There is no lower extremity edema. ABDOMEN: Bowel sounds are present. Abdomen is soft, nontender, nondistended. MUSCULOSKELETAL: The patient does not spontaneously move any of his limbs. SKIN: Visible sections are warm and dry. There are no rashes. NEUROLOGIC: Unable to be performed due to the patient being somnolent. PSYCH: Unable to be performed. LABORATORY DATA: WBC 11.6, hemoglobin 13.7, hematocrit 41, platelets 312, INR 0.77. Sodium 137, potassium 3.5, chloride 104, CO2 18, anion gap 15, BUN 11, creatinine 0.97, glucose 94, lactic acid 6.9, calcium 8.7, magnesium 2.0, bilirubin 0.3, AST 40, ALT 25, alk phos 106, albumin 4.0, TSH 2.92. Serum alcohol 240. Urinalysis revealed a specific gravity of 1.006 and otherwise negative for signs of infection. Chest x-ray: No evidence for acute intrathoracic disease. CT brain: Negative unenhanced head CT for age. Unchanged compared to the exam. ASSESSMENT AND PLAN: Mr. Hodges is a 61-year-old male who has a history of pseudoseizures who was found lying in his driveway, unresponsive, and shaking by report. CPR was reportedly started and the patient was brought to the emergency room still having what appeared to be seizure-like activity in the setting of a known history of pseudoseizures. 1. Probable pseudoseizure. Now with hypoxic respiratory failure secondary to benzodiazepine administration. The patient's states that with exertion, the patient is known to have these episodes. She states he had one just 2 to 3 days ago. She notes that these episodes become more frequent when it is hot out. She states she would have managed this at home; however, EMS had already been summoned. For now, the patient will be admitted to the ICU as he is requiring supplemental oxygen to maintain O2 saturation in the low to mid 90s due to aggressive benzodiazepine administration for the seizure-like activity followed by significant agitation. The patient's requests that once he wakes up and it is safe to go home that she be contacted to come pick him up and take him home. At this point, I will hold off on EEG evaluation. The patient's does not want again much of an evaluation at this point, just wishes for him to sleep off the effects of the medication and then to go home. She believes that this is what her would want. 2. HIV. Will continue Atripla. 3. Hypothyroidism. Continue Synthroid at current dose. TSH is in acceptable range. 4. Hyperlipidemia. Continue Lipitor. 5. Benign prostatic hypertrophy. Continue finasteride. 6. Depression. Continue venlafaxine. 7. Possible alcoholism. The patient reportedly drinks almost on a daily basis , though his does not know how much. I will place the patient on the [facility] protocol though I do not believe the seizure-like activity he was having earlier today is related to alcohol withdrawal as his alcohol level is still positive. Again, the patient is likely not going to stay long enough in the hospital to begin going through alcohol withdrawal. 8. DVT prophylaxis. According to the Adult Thrombosis Prophylaxis Risk Factor Assessment Guide, the patient has a total risk factor score of 1 making him low risk. Ambulation will be utilized; however, if the patient is still somnolent tomorrow morning, subcu heparin could be initiated. 9. Code status is full. TIME SPENT: 65 minutes were spent admitting this patient. [id number]/[facility] #: [id number] SERVANDO
[2017-10-15] MEDS ORDERED: Levothyroxine TAB* 50 MCG TAB PO SCH (06:00)
[2017-10-15] MEDS ORDERED: Umeclidin/Vilant 62.5 MDI 62.5/25 mcg 14 INH ELLIPTA DEVICE INH SCH (09:00)
[2017-10-15] MEDS ORDERED: Venlafaxine EXT RELEASE CAP* 75 MG PO SCH (09:00)
[2017-10-15] MEDS ORDERED: Finasteride TAB* 5 MG PO SCH (09:00)
[2017-10-15] MEDS ORDERED: Omeprazole CAP* 20 MG PO SCH (09:00)
[2017-10-15] MEDS ORDERED: Atorvastatin* 80 MG TAB PO SCH (18:00)
--- NOTE | 2017-10-16 04:53 | DS ---
CC: Dr. Echeverria* DISCHARGE SUMMARY: DATE OF ADMISSION: 10/14/17 DATE OF DISCHARGE: 10/15/17 PRIMARY CARE PROVIDER: Dr. Echeverria. PRINCIPAL DIAGNOSES: 1. Acute hypoxic respiratory failure secondary to benzodiazepine administration - resolved. 2. Probable pseudoseizure with fall. SECONDARY DIAGNOSIS: 1. Human immunodeficiency virus. 2. Pseudoseizures. 3. Hypothyroidism. 4. Hyperlipidemia. 5. Chronic low back pain. 6. Benign prostatic hyperplasia. 7. Depression. DISCHARGE MEDICATIONS: 1. Anoro 1 puff inhaled daily. 2. Levothyroxine 50 mcg p.o. daily. 3. Atripla 1 tab p.o. daily. 4. Lyrica 75 mg p.o. b.i.d. p.r.n. pain. 5. Meloxicam 15 mg p.o. daily. 6. Finasteride 5 mg p.o. daily. 7. Lipitor 80 mg p.o. q.h.s. 8. Seroquel 50 mg p.o. q.h.s. 9. Omeprazole 40 mg p.o. daily. 10. Tadalafil 5 mg p.o. daily p.r.n. ED. 11. Venlafaxine ER 150 mg p.o. daily. HOSPITAL COURSE: Mr. Hodges is a 61-year-old male, who presented to the emergency room on 10/14/17 after a passerby found him lying on the ground in his driveway shaking. The patient was brought to the emergency room, still shaking. He was given Ativan 2 mg. Following the Ativan, he became severely agitated stating he wanted to go home. The patient then received Versed 10 mg. The patient became very somnolent. He developed acute hypoxic respiratory failure. The patient was then admitted under observation to the intensive care unit for close monitoring of his respiratory status. Over the course of the next several hours, the patient did become much more alert and was breathing effectively. By 0120, the patient was able to ambulate short distance with a steady gait. At that point, the desired to take the patient home. She informed me that she felt this was another one of his nonepileptic spells and that she felt comfortable managing him at home. I did ask the patient and his to be mindful that if there any other concerning symptoms that he be brought back to the emergency room for reevaluation. FOLLOWUP CONCERNS: The patient is being discharged home today, 10/15/17. ACTIVITY LEVEL: As tolerated. DIET: Regular. CONDITION ON DISCHARGE: Stable. TIME SPENT: Twenty minutes was spent discharging this patient. [id number]/[facility] #: [id number] MTDD
== END 2017-10-15 01:30 | disposition home or self-care (01) ==
LOC: ED 18:11 → ICU 20:42
PROVIDERS: ADMIT Hospitalist; ATTEND Hospitalist
DX: J96.01 Acute respiratory failure with hypoxia (principal); B20 Human immunodeficiency virus [HIV] disease; E03.9 Hypothyroidism, unspecified; E78.5 Hyperlipidemia, unspecified; M54.5 Low back pain; G89.29 Other chronic pain; N40.0 Benign prostatic hyperplasia without lower urinary tract symptoms; F32.9 Major depressive disorder, single episode, unspecified; K21.9 Gastro-esophageal reflux disease without esophagitis; Z79.899 Other long term (current) drug therapy; Z88.0 Allergy status to penicillin; Z88.2 Allergy status to sulfonamides; F17.210 Nicotine dependence, cigarettes, uncomplicated; J44.9 Chronic obstructive pulmonary disease, unspecified; R94.31 Abnormal electrocardiogram [ECG] [EKG]
CPT/HCPCS: 36415; 70450; 71045; 80053; 80320; 81003; 81015; 83605; 83735; 84443; 85025; 85610; 85730; 87086; 93005; 96374; 99285; A9270-GY; G0378; G0480; J2060; J2250